=== PATIENT | male | born 1955 | race Caucasian/White ===

== ENCOUNTER → 2016-10-13 | Outpatient (CLI) | payer OTHER ==
--- NOTE | 2016-10-13 10:57 | CT ---
EXAMINATION TYPE: CT lumbar spine wo/w con DATE OF EXAM: 10/13/2016 8:47 AM COMPARISON: MRI lumbar spine 06/21/2016 HISTORY: Patient has no complaints at time of study. Follow up post operative study following lumbar fusion. Patient has a history of multiple myeloma. CT DLP: 1973.4 mGycm CONTRAST: CT scan of the lumbar is performed with IV Contrast, patient injected with 100 mL of Omnipaque 300. TECHNIQUE: CT of the lumbar spine is performed on a spiral scan at 3 mm thick sections. Reconstructed images are performed in the coronal and sagittal planes. FINDINGS: Pedicle screws are present in L1, L2, L4, and L5. Vertebral body spacers present at L3. Fix ation rods are present. These metallic artifacts cause some beam hardening artifact during the exam. No spinal canal stenosis is evident. The compression deformity of L3 is not visualized. No thecal sac compression is evident. However, there is beam hardening artifact at this level. T12-L1: No focal disc herniation or significant disc bulge is evident. No spinal canal stenosis or neural foraminal stenosis is present. L1-L2: No focal disc herniation or significant disc bulge is evident. No spinal canal stenosis or n eural foraminal stenosis is present L3 vertebral level is partially absent. No definite retropulsion remains present. L4-L5: No focal disc herniation or significant disc bulge is evident. No spinal canal stenosis or n eural foraminal stenosis is present L5-S1: Some posterior disc space narrowing is present. Minimal residual disc bulge may be present. No stenosis is evident. Mild facet changes are present. Vertebral alignment appears normal. IMPRESSION: Postsurgical changes. The metallic scatter artifact causes some limitation. No obvious spinal canal s tenosis is evident. No recurrent or new osseous abnormality is identified.
== END ==
LOC: RADCTMAIN 08:17
PROVIDERS: ATTEND Neurological Surgery
DX: M84.58XA Pathological fracture in neoplastic disease, other specified site, initial encounter for fracture (principal)
CPT/HCPCS: 72133; Q9967

== ENCOUNTER → 2017-01-17 | Outpatient (CLI) | payer OTHER ==
--- NOTE | 2017-01-17 15:55 | XR ---
EXAMINATION TYPE: XR chest 2V DATE OF EXAM: 01/17/2017 3:33 PM COMPARISON: Bone survey 08 July 2015 HISTORY: Multiple myeloma TECHNIQUE: Frontal and lateral views of the chest are obtained. FINDINGS: There is no focal air space opacity, pleural effusion, or pneumothorax seen. The cardiac silhouette size is within normal limits. There is a mild spinal curvature. The osseous structures a re intact. IMPRESSION: No acute cardiopulmonary process.
== END ==
LOC: RADXRMAIN 15:23
PROVIDERS: ATTEND Internal Medicine
DX: C90.00 Multiple myeloma not having achieved remission (principal); R06.02 Shortness of breath
CPT/HCPCS: 71020

== ENCOUNTER → 2019-03-21 | Outpatient (CLI) | payer OTHER, MEDICARE | END | disposition home or self-care (01) | LOC: CPPFTMAIN 07:22 | PROVIDERS: ATTEND Internal Medicine Hematology & Oncology | DX: Z01.818 Encounter for other preprocedural examination (principal); C90.00 Multiple myeloma not having achieved remission | CPT/HCPCS: 94060; 94726; 94729 ==

== ENCOUNTER → 2020-10-04 | Outpatient (CLI) | payer OTHER, MEDICARE ==
--- NOTE | 2020-10-06 08:04 | PE ---
EXAMINATION TYPE: PET CT fusion skull to thigh DATE OF EXAM: 10/04/2020 COMPARISON: NONE HISTORY: Multiple myeloma diagnosed 2004 with lower back involvement 2014. Currently on chemotherap y per patient. TECHNIQUE: Following the intravenous administration of 12.14 mCi of F-18 FDG, whole body images are performed from the top of skull to the bottom of feet. Images are reviewed on the computer in the co clotilde, axial, and sagittal planes. Reconstructed rotating images are created on independent workstat ion and reviewed on the computer. A noncontrast CT is performed in conjunction with the PET scan. B lood glucose level equals 92. SCAN: Subsequent Scan FINDINGS: HEAD AND NECK: No areas of suspicious hypermetabolic uptake. CHEST, MEDIASTINUM, AND HILAR REGION: No areas of suspicious hypermetabolic uptake. ABDOMEN AND PELVIS: No areas of suspicious hypermetabolic uptake. LOWER EXTREMITIES: No areas of suspicious hypermetabolic uptake. OSSEOUS STRUCTURES: Lytic hypermetabolic anterolateral right sixth rib lesion axial image 130, max RAGSDALE V is 8.14. Lytic hypermetabolic posterior right fourth rib lesion axial image 95, max SUV is 3.7. Lytic hypermetabolic anterior left second rib lesion axial image 102, max SUV is 4.38. Additional les ion with linear lucency consistent with pathologic fracture anterolateral left third rib axial image 105 and focal lytic lesion left lateral fifth rib axial image 117, max SUV is 2.54 minimally hypermet abolic. There are additional healing and healed rib fractures noted bilaterally. There is extensive surgical change in the lumbar spine without hypermetabolic uptake currently. No ragsdale spicious lytic hypermetabolic lesions in the pelvis. OTHER CT: [id number]-[id number] calcified plaque bilateral carotid bulb level. Mild coronary artery calcif ication. Simple appearing 2.2 cm thin-walled cyst upper pole left kidney.1 mild diffuse fatty infiltration of liver. Diverticula in the sigmoid colon. IMPRESSION: Active myelomatous involvement in the bilateral ribs as detailed above.
== END | disposition home or self-care (01) ==
LOC: RADPETMAIN 11:02
PROVIDERS: ATTEND Internal Medicine Hematology & Oncology
DX: C90.00 Multiple myeloma not having achieved remission (principal); E11.9 Type 2 diabetes mellitus without complications; Z92.21 Personal history of antineoplastic chemotherapy
CPT/HCPCS: 78815; A9552

== ENCOUNTER → 2021-01-24 | Outpatient (CLI) | payer OTHER, MEDICARE ==
--- NOTE | 2021-01-28 09:23 | PE ---
EXAMINATION TYPE: PET CT fusion skull to thigh DATE OF EXAM: 01/24/2021 COMPARISON: Prior PET/CT October 04, 2020 and older studies. HISTORY: Multiple myeloma with recent radiation and chemotherapy treatment, lateral most recent date January 23, 2021. TECHNIQUE: Following the intravenous administration of 11.06 mCi of F-18 FDG, whole body images are performed from the skull base to the bottom of feet. Images are reviewed on the computer in the tim nal, axial, and sagittal planes. Reconstructed rotating images are created on independent workstatio n and reviewed on the computer. A localization and attenuation correction CT is performed in conjun ction with the PET scan. Blood glucose level equals 133. SCAN: Subsequent Scan FINDINGS: HEAD AND NECK: Current exam does not include entire top of head. No new areas of suspicious hypermeta bolic uptake. CHEST, MEDIASTINUM, AND HILAR REGION: No new areas of suspicious hypermetabolic uptake. Prior focus of groundglass opacity medial superior right lower lobe is less prominent on current stud y. Overall less interstitial and central prominence noted bilaterally. ABDOMEN AND PELVIS: No new areas of suspicious hypermetabolic uptake. Normal excretion. LOWER EXTREMITIES: No areas of suspicious hypermetabolic uptake. OSSEOUS STRUCTURES: Right parietal cortical thinning axial image 17 shows no new hypermetabolic uptake. Lytic hypermetabolic anterolateral right sixth rib lesion prior study axial image 130, shows marked i mprovement, ametabolic currently. Lytic hypermetabolic posterior right fourth rib lesion axial image 84, marked interval improvement cu rrently ametabolic Lytic hypermetabolic anterior left second rib lesion axial image 90 current study, marked interval im provement currently ametabolic. Additional lesion with linear lucency consistent with pathologic fracture anterolateral left third ri b axial image 94 current study remains a metabolic. Focal lytic lesion left lateral fifth rib axial image 108 current study, now a metabolic. There are additional healing and healed rib fractures noted bilaterally. No suspicious hypermetabolic uptake left T5 transverse process current study. There is extensive surgical change in the lumbar spine without new areas of hypermetabolic uptake cur rently. No suspicious lytic hypermetabolic lesions in the pelvis. Lower extremities: No areas of abnormal hypermetabolic uptake. OTHER CT: Kskv-va-kkzkvqve calcified plaque bilateral carotid bulb level. Mild coronary artery calcif ication. Low lung volumes redemonstrated. Small sized hiatal hernia. Simple appearing 2.2 cm thin-walled cyst upper pole left kidney. Mild diffuse fatty infiltration of l iver redemonstrated. Diverticulosis in the sigmoid colon. IMPRESSION: Complete positive treatment response, no new or residual hypermetabolic osseous lytic lesions identified.
== END | disposition home or self-care (01) ==
LOC: RADPETMAIN 07:56
PROVIDERS: ATTEND Internal Medicine Hematology & Oncology
DX: C90.00 Multiple myeloma not having achieved remission (principal)
CPT/HCPCS: 78815; A9552

== ENCOUNTER → 2021-05-22 | Outpatient (CLI) | payer OTHER, MEDICARE ==
--- NOTE | 2021-05-25 19:03 | PE ---
EXAMINATION TYPE: PET CT fusion skull to thigh DATE OF EXAM: 05/22/2021 CLINICAL HISTORY: 65-year-old male C90.00, multiple myeloma, restaging. History of previous radiation to the spine. Biweekly infusion and weekly oral medication. TECHNIQUE: Following the intravenous administration of 10.35 mCi of F-18 FDG, whole body images are performed from the skull base to the midthigh. Images are reviewed on the computer in the coronal, axial, and sagittal planes. Reconstructed rotating images are created on independent workstation and reviewed on the computer. A localization and attenuation correction CT is performed in conjunction with the PET scan. Glucose level: 97 mg/dL Injection site: Right AC COMPARISON: 01/24/2021 and 10/04/2020. FINDINGS: PET: Physiologic FDG uptake within the neck. Recurrence of mild FDG uptake involving lytic lesions of the fourth posterior right rib, max SUV 2.4 versus 3.7 on 10/04/2020. Recurrence of mild FDG uptake also involving left anterior second, anterolateral third, and left late ral fifth ribs. Max SUV 2.2 versus 4.4 on 10/04/2020. Redemonstrated healed bilateral rib fracture deformities. Previous healed myelomatous lesion right la teral sixth rib no longer shows any FDG uptake compared to 10/04/2020. Otherwise, physiologic FDG uptake within the chest. Average liver SUV 2.1. 3.9 cm photopenic area upper pole left kidney suggesting a cyst. Variable moderate bowel uptake likel y physiologic. Otherwise, physiologic FDG uptake within the abdomen and pelvis. Scattered lucent and sclerotic lesions are present throughout the osseous structures, especially the pelvis and proximal femurs but these show no discrete FDG uptake. ATTENUATION CORRECTION CT: Paranasal sinuses and mastoid air cells appear clear. The orotracheal colon is clear. No cervical lym phadenopathy by CT size criteria. The heart is upper limits are normal in size without pericardial effusion. Scattered LAD and circumfl ex coronary artery calcifications are present. Ectatic ascending aorta 3.7 cm. Mild atherosclerotic arch calcifications. Ectatic upper descending thoracic aorta measuring 3.3 cm. Stable scattered nonen larged mediastinal lymph nodes. Mild centrilobular emphysema. Strandy areas of atelectasis. No conso lidation or pleural effusion. Small hiatal hernia. No dilated small bowel, free fluid, or free air. Moderate atherosclerotic calcif ications abdominal aorta and common iliac arteries without aneurysm. No mesenteric or retroperitonea l lymphadenopathy. Scattered mild to moderate stool. Sigmoid diverticulosis without pericolonic infla mmation. Moderate circumferential bladder wall thickening could represent chronic bladder wall hypertrophy or cystitis. Prostate gland measures 3.5 cm wide. No abnormal fluid collection in the pelvis or pelvic l ymphadenopathy. Bones: Post surgical change of L1-L5 posterior fusion IMPRESSION: 1. Lytic lesions involving the right fourth rib as well as the left second, third, and fifth ribs are showing recurrence of uptake. These areas were noted to have been abnormal on 10/04/2020 and had under gone treatment response on 01/24/2021. Note that the current uptake is mild (max SUV 2.4) versus the m ore moderate uptake seen on the 10/04/2020 exam (max SUV 4.4). The previous myelomatous lesion of the r ight lateral sixth rib seen on 10/04/2020 has not recurred. 2. Numerous other lytic and sclerotic lesions throughout the osseous structures especially the spine, pelvis, and proximal femurs are unchanged on CT. The lack of hypermetabolism is compatible with wilber yina disease.
== END | disposition home or self-care (01) ==
LOC: RADPETMAIN 10:19
PROVIDERS: ATTEND Internal Medicine Hematology & Oncology
DX: M89.9 Disorder of bone, unspecified (principal); Z85.79 Personal history of other malignant neoplasms of lymphoid, hematopoietic and related tissues
CPT/HCPCS: 78815; A9552

== ENCOUNTER → 2021-09-04 | Outpatient (CLI) | payer OTHER, MEDICARE ==
--- NOTE | 2021-09-07 08:02 | PE ---
EXAMINATION TYPE: PET CT fusion skull to thigh DATE OF EXAM: 09/04/2021 COMPARISON: Most recent PET/CT May 22, 2021 and older studies HISTORY: Multiple myeloma recently diagnosed 2004 with thoracic and lumbar spine involvement in 2015 and 2004 respectively and skull involvement in 2018. Patient completed chemotherapy August 31. TECHNIQUE: Following the intravenous administration of 11.14 mCi of F-18 FDG, whole body images are performed from the skull base to the midthigh. Images are reviewed on the computer in the coronal, a xial, and sagittal planes. Reconstructed rotating images are created on independent workstation and reviewed on the computer. A localization and attenuation correction CT is performed in conjunction with the PET scan. Blood glucose level equals 89. SCAN: Subsequent Scan FINDINGS: SKULL BASE AND NECK: No new areas of suspicious hypermetabolic uptake. CHEST, MEDIASTINUM, AND HILAR REGION: No new areas of suspicious hypermetabolic uptake. ABDOMEN AND PELVIS: No new areas of suspicious hypermetabolic uptake. Normal excretion. OSSEOUS STRUCTURES: Lytic slightly expansile hypermetabolic posterior right fourth rib lesion axial image 66, mild hyperm etabolic uptake, max SUV 2.64 versus 2.4 on most recent prior. Additional stable mild hypermetabolic uptake Max SUV less than 2.5 in anterolateral left upper ribs. No new areas of abnormal hypermetabolic uptake. There are additional healing and healed rib fractures redemonstrated bilaterally. No suspicious hypermetabolic uptake left T5 transverse process current study. There is extensive surgical change in the lumbar spine without definitive new areas of hypermetabolic uptake currently. No suspicious lytic hypermetabolic lesions in the pelvis. OTHER CT: Jtio-xl-jmwtuhen calcified plaque bilateral carotid bulb level. Mild coronary artery calcif ication. Low lung volumes redemonstrated. Small size hiatal hernia redemonstrated. Simple appearing 2.2 cm thin-walled cyst upper pole left kidney redemonstrated. Mild diffuse fatty in filtration of liver redemonstrated. Diverticulosis in the sigmoid colon again seen. Extensive post surgical change to the lumbar spine is redemonstrated. IMPRESSION: Stable findings from most recent PET/CT. No new or increased hypermetabolic lytic lesions . Single slightly hypermetabolic expansile lytic right posterior fourth rib lesion is fairly stable i n max SUV and appearance.
== END | disposition home or self-care (01) ==
LOC: RADPETMAIN 08:45
PROVIDERS: ATTEND Internal Medicine Hematology & Oncology
DX: C90.00 Multiple myeloma not having achieved remission (principal); M89.8X8 Other specified disorders of bone, other site
CPT/HCPCS: 78815; A9552

== ENCOUNTER → 2021-12-04 | Outpatient (CLI) | payer OTHER, MEDICARE ==
--- NOTE | 2021-12-04 12:47 | PE ---
EXAMINATION TYPE: PET CT fusion skull to thigh DATE OF EXAM: 12/04/2021 COMPARISON: Most recent PET/CT September 04, 2021 and older studies HISTORY: Multiple myeloma progress study. TECHNIQUE: Following the intravenous administration of mCi of F-18 FDG, whole body images are perfor med from the skull base to the midthigh. Images are reviewed on the computer in the coronal, axial, and sagittal planes. Reconstructed rotating images are created on independent workstation and review ed on the computer. A localization and attenuation correction CT is performed in conjunction with t he PET scan. Blood glucose level equals. SCAN: Subsequent Scan FINDINGS: SKULL BASE AND NECK: No new areas of suspicious hypermetabolic uptake. CHEST, MEDIASTINUM, AND HILAR REGION: No new areas of suspicious hypermetabolic uptake. ABDOMEN AND PELVIS: No new areas of suspicious hypermetabolic uptake. Normal excretion. OSSEOUS STRUCTURES: Lytic slightly expansile posterior right fourth rib lesion axial image 89 current study is currently ametabolic improved from most recent prior. Resolved mild hypermetabolic uptake in the anterolateral left upper ribs. No new areas of abnormal hypermetabolic uptake. There are additional healing and healed rib fractures redemonstrated bilaterally. No suspicious recurrent hypermetabolic uptake left T5 transverse process current study. There is extensive surgical change in the lumbar spine without definitive new areas of hypermetabolic uptake currently. No suspicious lytic hypermetabolic lesions in the pelvis. OTHER CT: Ffwq-wv-iqbrlibv calcified plaque bilateral carotid bulb level redemonstrated. Mild coronar y artery calcification redemonstrated. Low lung volumes redemonstrated. Small size hiatal hernia rede monstrated. Simple appearing 2.2 cm thin-walled cyst upper pole left kidney redemonstrated. Mild diffuse fatty in filtration of liver redemonstrated. Diverticulosis in the sigmoid colon again seen. Extensive post surgical change to the lumbar spine is redemonstrated. IMPRESSION: No new or persistent hypermetabolic lytic lesions on current exam.
== END | disposition home or self-care (01) ==
LOC: RADPETMAIN 08:17
PROVIDERS: ATTEND Internal Medicine Hematology & Oncology
DX: C90.00 Multiple myeloma not having achieved remission (principal)
CPT/HCPCS: 78815; A9552

== ENCOUNTER → 2022-01-11 | Outpatient (CLI) | payer OTHER, MEDICARE ==
[~2022-01-11] MED LIST: TIXAGEVIMAB/CILGAVIMAB (EUA) 300 MG/3 ML COMBO.PKG IM ONE
[2022-01-11 10:57] VITALS: BP 145/67; PULSE 75; RESP 16; TEMP 97.8
== END ==
LOC: PROCWHC3 10:36
PROVIDERS: ATTEND Internal Medicine Hematology & Oncology
DX: C90.00 Multiple myeloma not having achieved remission (principal)
CPT/HCPCS: Q0220; M0220

== ENCOUNTER → 2023-08-12 | Outpatient (CLI) | payer MEDICARE ==
--- NOTE | 2023-08-15 11:25 | PE ---
EXAMINATION TYPE: PET CT fusion whole body DATE OF EXAM: 08/12/2023 COMPARISON: No recent pertinent imaging Prior PET/CT: 12/04/2021, 09/04/2021 HISTORY: Myeloma TECHNIQUE: Following the intravenous administration of 8.86 mCi of F-18 FDG, whole body images are p erformed from the skull base to the midthigh. Images are reviewed on the computer in the coronal, ax ial, and sagittal planes. Reconstructed rotating images are created on independent workstation and r eviewed on the computer. A localization and attenuation correction CT is performed in conjunction w ith the PET scan. DLP: 999.66 mGycm SCAN: Subsequent Blood glucose: 93 mg/dL Average Mediastinum SUV: Average Liver SUV: FINDINGS: NECK: No abnormal uptake THORAX: There is a focus of radiotracer within the soft tissue density along the pleural margin later al left upper lung field. Image 109, SUV 10.06. There is a nearby chest wall lymph node in the retrop ectoralis region, image 103, SUV 5.76. Small amount of uptake may be at the osteochondral junction ri ght anterior rib, image 106, SUV 3.87. There is a focus of radiotracer at the costochondral junction near the sternal, image 114, SUV 3.85. There is uptake within the lateral left mid rib. Image 122, OCASIO V 9.59. ABDOMEN: No abnormal uptake PELVIS: Tiny amount of uptake is in the lateral acetabulum soft tissues, image 244, SUV 5.06. LEGS: No abnormal uptake. Uptake appears to be within vascular structures. Increased uptake is at the bilateral knees and bilateral ankles which could be related to degenerativ e joint changes. OSSEOUS STRUCTURES: Discussed in the thoracic level including rib and costal chondral junction areas of uptake on the left. LOCALIZATION CT: Postsurgical changes are within the lumbar spine. There is a large cyst on the super ior left kidney. Mild coronary artery calcification is present. Expansile rib lesion and pleural thic kening along the lateral anterior left upper lung field is evident. COMPARISON: There is no uptake on the current examination are interval findings comparison PET/CT trino ed 12/04/2021. This appears to be recurrence with increased expansion and increased uptake within the a nterolateral left rib compared to the 09/04/2021 PET/CT. IMPRESSION: 1. Recurrent uptake anterior lateral left third rib with increased expansion and increased uptake in adjacent pleural thickening with activity compared to prior examinations. 2. There are additional adjacent soft tissue areas of uptake. 3. Some additional osseous uptake within the anterior left ribs may be present discussed above.
== END | disposition home or self-care (01) ==
LOC: RADPETMAIN 09:11
PROVIDERS: ATTEND Internal Medicine
DX: C90.00 Multiple myeloma not having achieved remission (principal)
CPT/HCPCS: 78816; A9552

== ENCOUNTER → 2023-11-29 | Outpatient (CLI) | payer MEDICARE ==
[2023-11-30 03:33] LABS: ALT 24 U/L (10-49); AST 31 U/L (14-35); Albumin 3.9 g/dL (3.8-4.9); Albumin/Globulin Ratio 0.87 Ratio (1.60-3.17); Alkaline Phosphatase 73 U/L (41-126); BUN/Creat Ratio 10.82 Ratio (12.00-20.00); Blood Urea Nitrogen 11.9 mg/dL (9.0-27.0); Calcium 10.2 mg/dL (8.7-10.3); Carbon Dioxide 28.3 mmol/L (21.6-31.8); Chloride 101 mmol/L (96-109); Globulin 4.5 g/dL (1.6-3.3); Glucose 97 mg/dL (70-110); Potassium 4.3 mmol/L (3.5-5.5); Sodium 139 mmol/L (135-145); Total Bilirubin 0.4 mg/dL (0.3-1.2); Total Protein 8.4 g/dL (6.2-8.2)
[2023-11-30 04:43] LABS: Basophils # (A) 0.03 X 10*3/uL (0.00-0.10); Basophils % (A) 0.4 %; Eosinophils # (A) 0.14 X 10*3/uL (0.04-0.35); Eosinophils % (A) 1.8 %; HCT 33.7 % (39.6-50.0); HGB 11.1 g/dL (13.0-17.0); Lymphocytes # (A) 1.95 X 10*3/uL (0.90-5.00); Lymphocytes % (A) 25.7 %; MCH 32.3 pg (27.0-32.0); MCHC 32.9 g/dL (32.0-37.0); Mean Platelet Volume 10.5 FL (9.5-12.2); Monocytes # (A) 1.01 X 10*3/uL (0.20-1.00); Monocytes % (A) 13.3 %; NRBC Per 100 WBC 0 X 10*3/uL (0.00-0.01); Neutrophils # (A) 4.38 X 10*3/uL (1.80-7.70); Neutrophils % (A) 57.9 %; Platelet Count 203 X 10*3/uL (140-440); RBC 3.44 X 10*6/uL (4.40-5.60); RDW 14.9 % (11.5-14.5); WBC 7.58 X 10*3/uL (4.50-10.00)
== END | disposition home or self-care (01) ==
LOC: LABWHC1 13:09
PROVIDERS: ATTEND Internal Medicine
DX: C90.02 Multiple myeloma in relapse (principal)
CPT/HCPCS: 36415; 80053; 85025

== ENCOUNTER → 2024-04-23 | Outpatient (CLI) | payer MEDICARE ==
--- NOTE | 2024-04-23 13:49 | XR ---
EXAMINATION TYPE: XR clavicle RT DATE OF EXAM: 04/23/2024 COMPARISON: NONE HISTORY: pain TECHNIQUE: two views right clavicle FINDINGS: There is a finding suspicious for fracture of the medial margin of the clavicle. There is s ome expansion of the posterior right fourth rib which could be related to underlying multiple myeloma . Severe AC joint arthropathy. IMPRESSION: 1. There is a age-indeterminate fracture of the medial margin of the right clavicle with mild displac ement. 2. There is expansion of the medial margin of the right fourth rib possibly neoplastic or related to myeloma.
[2024-04-23 19:02] LABS: ALT 10 U/L (10-49); AST 21 U/L (14-35); Albumin 4.1 g/dL (3.8-4.9); Albumin/Globulin Ratio 1.11 Ratio (1.60-3.17); Alkaline Phosphatase 165 U/L (41-126); Blood Urea Nitrogen 14.4 mg/dL (9.0-27.0); Calcium 9.9 mg/dL (8.7-10.3); Carbon Dioxide 25.4 mmol/L (21.6-31.8); Chloride 101 mmol/L (96-109); Globulin 3.7 g/dL (1.6-3.3); Glucose 99 mg/dL (70-110); Potassium 5.1 mmol/L (3.5-5.5); Sodium 138 mmol/L (135-145); Total Bilirubin 0.2 mg/dL (0.3-1.2); Total Protein 7.8 g/dL (6.2-8.2)
== END | disposition home or self-care (01) ==
LOC: RADXRMAIN 13:23
PROVIDERS: ATTEND Family Medicine
DX: M25.511 Pain in right shoulder (principal); C90.00 Multiple myeloma not having achieved remission; I10 Essential (primary) hypertension
CPT/HCPCS: 80053

== ENCOUNTER → 2024-04-27 | Outpatient (CLI) | payer MEDICARE ==
--- NOTE | 2024-04-27 17:23 | PE ---
EXAMINATION TYPE: PET CT fusion whole body DATE OF EXAM: 04/27/2024 CLINICAL INDICATION:Male, 68 years old with history of C90.02 MULTIPLE MYELOMA IN RELAPSE; TECHNIQUE: Following the intravenous administration of 10.35 mCi of F-18 FDG, whole body images are performed from the skull base to the midthigh. Images are reviewed on the computer in the coronal, axial, and sagittal planes. Reconstructed rotating images are created on independent workstation and reviewed on the computer. A non-contrast CT is performed in conjunction with the PET scan. Glucose level 102 mg/dL CT DLP: 785 mGycm, Automated exposure control for dose reduction was used. COMPARISON: CT None, PET/CT 08/12/2023, 12/04/2021, 09/04/2021, MRI: None FINDINGS: Mediastinal SUV mean is 3.2. Hepatic parenchyma SUV mean is 3.0. SKULL BASE AND NECK: There is a new soft tissue mass that is FDG avid clivus that extends into the l eft sphenoid sinus. Measures grossly 2.0 cm. This demonstrates a maximum SUV of 15.6. CHEST, MEDIASTINUM, AND HILAR REGION: Similar patchy groundglass opacity within the medial aspect of the right upper lobe with new patchy reticular opacities in within the peripheral left upper lobe. Th is demonstrates a maximum SUV of 2.9. Favored to represent an infectious/inflammatory process. ABDOMEN AND PELVIS: No suspicious radiotracer activity. MUSCULOSKELETAL STRUCTURES: New innumerable FDG avid lytic lesions demonstrated throughout the osseous structures involving the c alvarium, mandible, clavicles with redemonstration of medial right clavicle fracture. Maximum SUV of the site of fracture in the right first rib is 11.1. Medial left clavicle demonstrates a maximum SUV of 16. The largest lytic lesion in the right frontal bone demonstrates a maximum SUV of 13.6. Additional fractures involving the right anterior second, third, fourth ribs. There is some callus fo rmation involving the third and fourth rib fractures. Healing left lateral fifth, sixth, seventh, and eighth ribs with callus formation. Additional posterior left 11th rib fracture. These all still have fracture line present. There is soft tissue component prominently involving the medial aspect of the anterior left third rib. This demonstrates a maximum SUV of 10.5. Additional example including the l eft first rib with a maximum SUV 11.8. Additional involvement of the bilateral scapula, ribs, sternum, vertebral bodies, pelvic bones, and b oth proximal femurs and humeri. Examples include a left T4 posterior element with a maximum SUV of 13 .8, T11 vertebral body with maximum SUV of 15.9, right L3 posterior elements with a max SUV of 16.2, right iliac bone with a maximum SUV of 15.5, right hemisacrum with a maximum SUV of 12.0, left iliac bone with a max SUV of 15.2, and left proximal femur with a maximum SUV of 14.6. No significant radiotracer uptake identified at the knees and lower. Extensive surgical change in the lumbar spine. OTHER CT: Ixbg-qa-ipifnllu calcified plaque bilateral carotid bulb level redemonstrated. Mild coronar y artery calcification redemonstrated. Small size hiatal hernia redemonstrated. Simple appearing 2.2 cm thin-walled cyst upper pole left kidney redemonstrated. Mild diffuse fatty in filtration of liver redemonstrated. Diverticulosis in the sigmoid colon again seen. IMPRESSION: 1. Significant progression of widespread innumerable FDG avid multiple myeloma lesions throughout th e osseous structures as described above. Soft tissue lytic clival lesion extends into the left spheno id sinus. 2. Healing bilateral rib and right clavicle fractures which appear to be traumatic versus pathologic due to sequential involvement.
== END | disposition home or self-care (01) ==
LOC: RADPETMAIN 14:49
PROVIDERS: ATTEND Internal Medicine
DX: C90.02 Multiple myeloma in relapse (principal)
CPT/HCPCS: 78816; A9552